=== PATIENT | male | born 1960 | race Caucasian/White ===

== ENCOUNTER → 2020-07-06 | Day surgery (SDC) | payer BC, MEDICARE ==
[~2020-07-06] MED LIST: Ketamine 200 MG/20 ML MDV IV ONE; Lactated Ringers 1,000 ML IV SCH; Propofol 200 MG/20 ML SDV IV ONE
[2020-07-06 11:06] VITALS: BP 165/92; PULSE 62
--- NOTE | 2020-07-09 09:52 | OR ---
DATE OF OPERATION: 07/06/2020 PREOPERATIVE DIAGNOSIS: HISTORY OF POLYPS. POSTOPERATIVE DIAGNOSIS: HISTORY OF POLYPS. SURGEON: Ashok Norman MD PROCEDURE: FULL-LENGTH COLONOSCOPY. ANESTHESIA: MAC. COMPLICATIONS: None. SPECIMEN: None. FINDINGS: 1. Full-length colonoscopy. 2. Pandiverticulosis, mild to moderate. 3. Marginal bowel prep. RECOMMENDATIONS: Followup colonoscopy per routine ACS guidelines in another 5 years. INDICATIONS: The patient is a 59-year-old with prior history of polyps removed. He is due for a routine followup surveillance scope in that regard. DESCRIPTION OF PROCEDURE: The patient was prepped and draped, placed in the left lateral decubitus position. A lubricated Olympus colonoscope was inserted and easily advanced to the cecum. Direct visualization of the ileocecal valve and appendiceal orifice was accomplished. The bowel prep was very marginal. There was a lot of stool throughout the colon, most areas could be suctioned, but there were certainly places that we could not visualize well and smaller lesions certainly could have been missed. Upon withdrawal throughout the entire length of the colon, I could find no signs of any polyps, masses, ulceration, or bleeding sites. No vascular abnormalities or signs of colitis. The patient does have pandiverticulosis, mild and in some areas moderate, but no inflammatory changes were seen. The rectal vault appeared benign. Retroflexion of the scope in the rectum showed no anal lesions. Air was suctioned, scope removed without complication. CHAN/DUSTIN /[id number]
== END ==
LOC: CC.SDS 09:19
PROVIDERS: ATTEND Family Medicine
DX: Z12.11 Encounter for screening for malignant neoplasm of colon (principal); K57.30 Diverticulosis of large intestine without perforation or abscess without bleeding; I10 Essential (primary) hypertension; E66.9 Obesity, unspecified; F32.2 Major depressive disorder, single episode, severe without psychotic features; G89.29 Other chronic pain; F11.99 Opioid use, unspecified with unspecified opioid-induced disorder; N40.0 Benign prostatic hyperplasia without lower urinary tract symptoms; I48.0 Paroxysmal atrial fibrillation; E53.8 Deficiency of other specified B group vitamins; M48.061 Spinal stenosis, lumbar region without neurogenic claudication; Z79.899 Other long term (current) drug therapy; Z88.5 Allergy status to narcotic agent; Z88.8 Allergy status to other drugs, medicaments and biological substances; Z86.010 Personal history of colon polyps; Z98.890 Other specified postprocedural states; Z68.41 Body mass index [BMI] 40.0-44.9, adult
CPT/HCPCS: 45378; J2704; J7120; 00811